=== PATIENT | female | born 1970 | race Caucasian/White ===

== ENCOUNTER 2016-11-16 07:49 | Day surgery (SDC) | payer OTHER ==
[2016-11-15 13:21] VITALS: BMI 21.9
[2016-11-16 08:44] VITALS: TEMP 98
[2016-11-16 08:55] LABS: BASOPHIL 1.2 % (0-2.0); EOSINOPHIL 3.7 % (0-4.5); MCH 28.6 pg (25.7-33.7); MCHC 33.6 g/dl (32.0-36.0); MEAN CELL VOLUME 85.2 fl (80-96); MEAN PLT VOLUME 8.3 fl (7.5-11.1); NEUTROPHILS 58.3 % (42.8-82.8); PLATELET COUNT 250 K/MM3 (134-434); WHITE BLOOD COUNT 7.4 K/mm3 (4.0-10.0)
[2016-11-16 09:23] LABS: INR 1.1 (0.82-1.09); PROTHROMBIN TIME (PATIENT) 12.1 SEC (9.98-11.88)
[2016-11-16] MEDS ORDERED: PORTA CATH FLUSH 10 ML IVPUSH PRN (09:55)
[2016-11-16] MEDS ORDERED: CEFAZOLIN (PRE-DOCKED) 100 ML IVPB ONE (11:26)
[2016-11-16 15:16] VITALS: BP 112/50; PULSE 80
== END 2016-11-16 14:10 | disposition home or self-care (01) ==
LOC: JRADIR 07:49
PROVIDERS: ATTEND Internal Medicine Hematology
PROC: 02HV33Z Insertion of Infusion Device into Superior Vena Cava, Percutaneous Approach (ICD-10-PCS; principal; 2016-11-16)
PROC: B548ZZA Ultrasonography of Superior Vena Cava, Guidance (ICD-10-PCS; 2016-11-16)
DX: C50.811 Malignant neoplasm of overlapping sites of right female breast (principal)
CPT/HCPCS: 36561; 76937; C1788; 36415; 77001-TC; 84703; 85025; 85610

== ENCOUNTER 2017-04-27 07:46 | Day surgery (SDC) | payer OTHER ==
[2017-04-26 15:31] VITALS: BMI 21.1
[2017-04-27] MEDS ORDERED: PROPOFOL 20 ML ONE (16:27)
[2017-04-27] MEDS ORDERED: MIDAZOLAM HCL 2 MG/2 ML SINGLE DOSE VIAL ONE (16:27)
[2017-04-27] MEDS ORDERED: LIDOCAINE HCL/PF 2% SDV 5ML VIAL ONE (16:28)
[2017-04-27] MEDS ORDERED: SODIUM CHLORIDE 0.9% P/F 10 ML VIAL IJ ONE (16:28)
[2017-04-27] MEDS ORDERED: ceFAZolin SODIUM 1 GM VIAL IVPB ONE (16:39)
[2017-04-27] MEDS ORDERED: ISOSULFAN BLUE 10 MG/ML VIAL SQ ONE (16:41)
[2017-04-27] MEDS ORDERED: DEXAMETHASONE SOD PHOSPHATE 4 MG/1 ML VIAL ONE (16:51)
[2017-04-27] MEDS ORDERED: BUPIVACAINE HCL/PF 0.5% (5MG/ML) 10 ML VIAL IJ ONE (17:00)
[2017-04-27] MEDS ORDERED: KETOROLAC TROMETHAMINE 30 MG/1 ML VIAL ONE (17:37)
[2017-04-27] MEDS ORDERED: KETOROLAC TROMETHAMINE 30 MG/1 ML VIAL IVPUSH PRN (18:29)
[2017-04-27] MEDS ORDERED: ONDANSETRON 4 MG/2 ML VIAL IVPUSH PRN ×2 (18:29→19:03)
[2017-04-27] MEDS ORDERED: DEXTROSE 5%-0.45% SALINE 1,000 ML IV SCH (18:30)
[2017-04-27] MEDS ORDERED: PROMETHAZINE HCL 25 MG/1 ML VIAL IVPB PRN (19:03)
[2017-04-27 19:13] VITALS: TEMP 98.2
[2017-04-27] MEDS ORDERED: LACTATED RINGERS SOLUTION 1,000 ML IV SCH (19:15)
[2017-04-27 20:14] VITALS: PULSE 72
[2017-04-27 20:15] VITALS: BP 117/62
--- NOTE | 2017-04-28 07:21 | OP ---
DATE OF OPERATION: 04/27/2017 PREOPERATIVE DIAGNOSIS: Right breast cancer, overlapping regions, status post neoadjuvant chemotherapy. POSTOPERATIVE DIAGNOSIS: Right breast cancer, overlapping regions, status post neoadjuvant chemotherapy. Await permanent section. PROCEDURE: A right breast partial mastectomy with mammographic needle localization with right axillary sentinel lymph node biopsy and tissue transfer 3 x 4-cm closure. ANESTHESIA: General laryngeal mask airway anesthesia. PRIMARY SURGEON: Rudy Bello MD DOUBLE END TENONER OPERATOR: ARUN Correa COMPLICATIONS: There were no complications. INDICATION FOR PROCEDURE: Briefly, the patient is a 46-year-old, G5, P2, premenopausal female with -[place] descent. She has no history of breast or ovarian cancer. She was found to have a spiculated density in the 12 o'clock region of the right breast on screening mammography. 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 MRI showed a localized cancer measuring about 2.1 cm with a separate density in the left breast which was biopsied showing a fibroadenoma. The patient was felt to be a good candidate for neoadjuvant chemotherapy and underwent TCHP chemotherapy, with followup MRI showing complete resolution of the cancer in the right breast. The patient is advised undergoing a right patient states that partial mastectomy and sentinel lymph node biopsy. DESCRIPTION OF PROCEDURE: She was brought in for the procedure on April 27, 2017. She first underwent a needle localization and lymphoscintigraphy down in radiology and was brought up to the holding area. In the holding area, site verification was made and informed consent was obtained. She was brought into the operating room and laid on the OR table in the supine position. Venodynes were placed on the lower extremities prior to induction, and she received a gram of Ancef prior to incision. She underwent general laryngeal mask airway anesthesia. Lymphazurin blue, 3 mL, was injected intradermally and peritumorally around the needle localization site. Massage was instituted. At this point the right breast was sterilely prepped and draped in the usual fashion. The surgery was started with the sentinel lymph node biopsy. An incision was made just below the hair-bearing area of the right axilla and dissection was undertaken, and 3 blue hot nodes were easily found in the level I, II regions of the right axilla. The first sentinel lymph node had a 10-second gamma count of 15,708. The second sentinel lymph node had a 10-second gamma count of 1363. The third sentinel lymph node had a 10-second gamma count of 3130. Background count after removal of these 3 nodes was 752. Hemostasis was achieved and the axillary wound was closed using interrupted 2-0 plain suture. The skin was closed using interrupted 3-0 deep dermal Vicryl suture and a running 4-0 subcuticular Biosyn suture. At this point the wide excision was undertaken around the needle localization site in the right breast. A periareolar curvilinear incision was made and dissection was undertaken around the needle localization. The breast tissue was completely removed from around the needle localization with a Y in the middle of the specimen. The specimen was oriented with a long lateral, short superior suture, and the specimen radiograph showed removal of the clip in question. At this point, separate margins were taken on the superior, inferior, medial, lateral, deep, and anterior margins, with sutures marking the biopsy cavity site and each specimen sent separately to pathology in formalin. We did do frozen sections on the 3 sentinel lymph nodes, which came back negative, so no other nodes were removed. At this point a tissue transfer closure was accomplished by bringing in about a 3 x 4-cm area of breast tissue into the defect in the upper aspect of the right breast. The breast tissue was reapproximated using 2-0 plain suture. The skin was closed using interrupted 3-0 deep dermal Vicryl suture and a running 4-0 subcuticular Biosyn suture. Mastisol and Steri-Strips were applied over the wound. The patient was placed in a surgical bra postoperatively, and laryngeal mask airway tube was removed at the end of the case. The patient will be recovered postoperatively and will be discharged home the same day once discharge criteria are met. She is to follow up in the office in 1 week for wound, pathology check. All sponge and needle counts were correct at the end of the case. Estimated blood loss was minimal. RUDY BELLO M.D. [id number]
--- NOTE | 2017-05-02 12:19 | PATH ---
Surgical Pathology Report Patient Name: GABRIEL ROBIN [facility]. Rec. #: [id number] /Age/Gender: 1970 (Age: 46) / F Account: [id number] Location: AMBULATORY SURG Taken: 04/27/2017 Received: 04/28/2017 Reported: 05/02/2017 Physicians: Los Bello M.D. Specimen(s) Received A: RIGHT SENTINEL LYMPH NODE 1 B: RIGHT SENTINEL LYMPH NODE 2 C: RIGHT SENTINEL LYMPH NODE 3 D: BREAST RIGHT LUMPECTOMY E: BREAST MASS SUPERIOR MARGIN F: BREAST MASS MEDIAL MARGIN G: BREAST MASS INFERIOR MARGIN H: BREAST MASS LATERAL MARGIN I: BREAST MASS DEEP MARGIN J: BREAST MASS ANTERIOR MARGIN Clinical History Right breast cancer status post neoadjuvant Intraoperative Consult Diagnosis A. Dewy Rose lymph node #1, frozen section: One negative lymph node (0/1). B. Dewy Rose lymph node #2, frozen section: One negative lymph node (0/1). C. Dewy Rose lymph node #3, frozen section: One negative lymph node (0/1). Glen Griffith M.D., 04/27/17 Final Diagnosis A. LYMPH NODE, RIGHT AXILLARY SENTINEL NODE #1, EXCISION: ONE BENIGN LYMPH NODE (0/1) BY STANDARD HEMATOXYLIN AND EOSIN STAIN (MULTIPLE LEVELS EXAMINED) AND AE1/3 IMMUNOSTAIN. B. LYMPH NODE, RIGHT AXILLARY SENTINEL NODE #2, EXCISION: ONE BENIGN LYMPH NODE (0/1) BY STANDARD HEMATOXYLIN AND EOSIN STAIN (MULTIPLE LEVELS EXAMINED) AND AE1/3 IMMUNOSTAIN. C. LYMPH NODE, RIGHT AXILLARY SENTINEL NODE #3, EXCISION: ONE BENIGN LYMPH NODE (0/1) BY STANDARD HEMATOXYLIN AND EOSIN STAIN (MULTIPLE LEVELS EXAMINED) AND AE1/3 IMMUNOSTAIN. D. RIGHT BREAST, WIDE EXCISION WITH WIRE LOCALIZATION: BENIGN BREAST TISSUE WITH FIBROADENOMATOUS CHANGES, AND FIBROCYSTIC CHANGES INCLUDING STROMAL FIBROSIS AND DUCTAL DILATATION. NO RESIDUAL INVASIVE DUCTAL CARCINOMA OR DUCTAL CARCINOMA IN SITU IDENTIFIED. AREA OF APPARENT TUMOR BED PRESENT, MEASURING 1.0 CM IN GREATEST DIMENSION. E. RIGHT BREAST, SUPERIOR MARGIN, EXCISION: BENIGN BREAST TISSUE WITH FIBROCYSTIC CHANGES INCLUDING STROMAL FIBROSIS, DUCTAL DILATATION, AND ASSOCIATED CALCIFICATION. FIBROADENOMATOUS CHANGES ARE PRESENT. F. RIGHT BREAST, MEDIAL MARGIN, EXCISION: BENIGN BREAST TISSUE. G. RIGHT BREAST, INFERIOR MARGIN, EXCISION: SMALL (2 MM) FIBROADENOMA, AND BENIGN BREAST TISSUE. H. RIGHT BREAST, LATERAL MARGIN, EXCISION: BENIGN BREAST TISSUE. I. RIGHT BREAST, DEEP MARGIN, EXCISION: BENIGN FIBROFATTY TISSUE. J. RIGHT BREAST, ANTERIOR MARGIN, EXCISION: BENIGN BREAST TISSUE. Comment: Immunohistochemical stains performed at [place], [place] ([id number]) and interpreted at [facility] show the following results: Immunostain for AE1/3 on Specimens A, B, and C are negative. Also see prior Slide Review [id number]. Comments Breast Invasive Carcinoma: Surgical Pathology Cancer Case Summary Based on AJCC/UICC TNM, 7th edition Procedure _X__ Excision with image-guided localization Lymph Node Sampling (select all that apply) (required only if lymph nodes are present in the specimen) _X__ Dewy Rose lymph node(s) Specimen Laterality _X__ Right Tumor Size: Size of Largest Invasive Carcinoma _X__ No residual invasive carcinoma Tumor Focality _X__ No residual invasive carcinoma Macroscopic and Microscopic Extent of Tumor Skin _X__ Invasive carcinoma does not invade into the dermis or epidermis Nipple _X__ Not applicable (excisions less than total mastectomy) Ductal Carcinoma In Situ (DCIS) _X__ No DCIS is present Histologic Type of Invasive Carcinoma : _X__ No residual invasive carcinoma Histologic Grade: ([place] Histologic Score) Tubular Differentiation _X__ No residual invasive carcinoma Nuclear Pleomorphism _X__ No residual invasive carcinoma Mitotic Rate _X__ No residual invasive carcinoma Overall Grade _X__ No residual invasive carcinoma after presurgical (neoadjuvant) therapy Lymph-Vascular Invasion _X__ Not identified Lymph Nodes Total number of lymph nodes examined (sentinel and nonsentinel): 3 Number of sentinel lymph nodes examined: 3 Number of lymph nodes with macrometastases ( > 2 mm): 0 Number of lymph nodes with micrometastases (>0.2 mm to 2 mm and/or >200cells):0 Number of lymph nodes with isolated tumor cells (=0.2 mm and =200 cells): 0 Extranodal Extension _X__ Not applicable Pathologic Staging (pTNM) Primary Tumor (Invasive Carcinoma): ypT0 Regional Lymph Nodes (pN): ypN0(sn) Biomarker Studies See prior Slide Review [id number] for results of biomarker studies [facility] [place], [place] Electronically Signed Quentin Valle M.D. Gross Description A. Received fresh labeled "sentinel lymph node #1 right axilla," is a 1.3 x 1.0 x 0.4 cm lymph node. The specimen is bisected and entirely submitted for frozen section. The frozen section residue is entirely submitted in one cassette. B. Received fresh labeled "sentinel lymph node #2 right axilla," is a 0.6 x 0.3 x 0.3 cm lymph node. The specimen is submitted in toto for frozen section. The frozen section residue is entirely submitted in one cassette. C. Received fresh labeled "sentinel lymph node #3 right axilla," is a 0.6 x 0.5 x 0.3 cm lymph node. The specimen is submitted in toto for frozen section. The frozen section residue is entirely submitted in one cassette. D. Received in formalin, labeled "right breast lumpectomy," is a 4.5 x 3.0 x 2.2 cm. cole-yellow, irregular, portion of fibroadipose tissue with a needle localization wire present. There is a short suture marking the superior aspect and a long suture marking the lateral aspect, per the surgeon. There is no skin or nipple present. The specimen is inked as follows: superior and lateral blue; inferior green; medial yellow; anterior red; deep black. The specimen is serially sectioned from superior to inferior. Sectioning reveals abundant dense, white, firm fibrous tissue. No definitive residual mass is identified. The specimen is entirely and sequentially submitted from superior to inferior in 10 cassettes with the superior margin in cassette 1 and the inferior margin in cassette 10 (one whole bisected section each in cassettes 5/6, 7/8). Total formalin fixation time: Between 24-32 hours E. Received in formalin labeled "superior margin," is a 2.6 x 2.0 x 0.6 cm irregular portion of fibroadipose tissue with a suture marking the biopsy cavity side, per the surgeon. The new margin is inked blue and the specimen is serially sectioned. The specimen is entirely submitted in 3 cassettes. F. Received in formalin labeled "medial margin," is a 2.7 x 1.8 x 0.7 cm irregular portion of fibroadipose tissue with a suture marking the biopsy cavity side, per the surgeon. The new margin is inked blue and the specimen is serially sectioned. The specimen is entirely submitted in 3 cassettes. G. Received in formalin labeled "inferior margin," is a 2.3 x 1.8 x 0.7 cm irregular portion of fibroadipose tissue with a suture marking the biopsy cavity side, per the surgeon. The new margin is inked blue and the specimen is serially sectioned. The specimen is entirely submitted in 3 cassettes. H. Received in formalin labeled "lateral margin," is a 2.8 x 2.0 x 0.7 cm irregular portion of fibroadipose tissue with a suture marking the biopsy cavity side, per the surgeon. The new margin is inked blue and the specimen is serially sectioned. The specimen is entirely submitted in 3 cassettes. I. Received in formalin labeled "deep margin," is a 1.5 x 1.3 x 0.3 cm irregular portion of fibroadipose tissue with a suture marking the biopsy cavity side, per the surgeon. The new margin is inked blue and the specimen is serially sectioned. The specimen is entirely submitted in 2 cassettes. J. Received in formalin labeled "anterior margin," is a 1.7 x 1.2 x 0.7 cm irregular portion of fibroadipose tissue with a suture marking the biopsy cavity side, per the surgeon. The new margin is inked blue and the specimen is serially sectioned. The specimen is entirely submitted in 2 cassettes. 04/28/2017 saudi04/28/2017
== END 2017-04-27 22:05 | disposition home or self-care (01) ==
LOC: JASUSAT 07:46 → J8W 20:31 → JASUSAT 22:05
PROVIDERS: ATTEND Surgery Surgical Oncology
PROC: 0HBT0ZZ Excision of Right Breast, Open Approach (ICD-10-PCS; principal; 2017-04-27 13:00)
PROC: 0HBT0ZX Excision of Right Breast, Open Approach, Diagnostic (ICD-10-PCS; 2017-04-27 13:00)
DX: C50.811 Malignant neoplasm of overlapping sites of right female breast (principal)
CPT/HCPCS: 19281; 78195-TC; 84703; 94760; A9541

== ENCOUNTER 2018-02-20 12:04 | Day surgery (SDC) | payer OTHER ==
--- NOTE | 2018-02-12 11:25 | HP ---
Admitting History and Physical - Primary Care Physician PCP: Los Bello - Admission Chief Complaint: Right breast cancer History of Present Illness: 47 year old premenapausal female S//P right breast wide excision sentenel node biopsy for invasive cancer HER2 + . She received chemotherapy and 07/2017 finished Herceptin. She also received RT. Mammogram and Us 08/2017 post op changes and right breast mammogram and US follow up for 03/2018. She is here for port removal. History Source: Patient Limitations to Obtaining History: No Limitations - Past Medical History Gastrointestinal: Yes: Diverticulitis ...LMP: 08/15/16 - Past Surgical History Past Surgical History: Yes: Cholecystectomy (2006) Additional Past Surgical History: ovarian cystectomy 2015 - Smoking History Smoking history: Never smoked Have you smoked in the past 12 months: No - Alcohol/Substance Use Hx Alcohol Use: No Home Medications - Allergies Allergies/Adverse Reactions: Allergies Allergy/AdvReac Type Severity Reaction Status Date / Time shellfish derived Allergy Severe Hives Verified 04/26/17 15:32 No Known Drug Allergies Allergy Verified 04/26/17 15:32 - Home Medications Home Medications: Ambulatory Orders Oxycodone HCl/Acetaminophen [Percocet 5-325 mg Tablet] 1 - 2 tab PO Q6H PRN #30 tab MDD 6 04/27/17 Family Disease History - Family Disease History Family History: Denies Physical Examination Constitutional: Yes: No Distress Breast(s): Yes: Other (Well healed right periareolar incision no recurrence or adenopathy right breast , left breast negative) Problem List - Problems (1) Breast cancer, right breast Code(s): C50.911 - MALIGNANT NEOPLASM OF UNSP SITE OF RIGHT FEMALE BREAST Qualifiers: Breast location: overlapping sites of breast Patient sex: female Assessment/Plan Life port removal
[2018-02-12 19:33] VITALS: BMI 22.8
[2018-02-20] MEDS ORDERED: LIDOCAINE HCL 1%, 10 MG/ML (20ML VIAL) ONE (13:06)
[2018-02-20] MEDS ORDERED: MIDAZOLAM HCL 2 MG/2 ML SINGLE DOSE VIAL ONE (13:49)
[2018-02-20] MEDS ORDERED: DEXAMETHASONE SOD PHOSPHATE 4 MG/1 ML VIAL ONE (13:55)
[2018-02-20] MEDS ORDERED: KETOROLAC TROMETHAMINE 30 MG/1 ML VIAL ONE (13:55)
[2018-02-20] MEDS ORDERED: ONDANSETRON 4 MG/2 ML VIAL ONE (13:55)
[2018-02-20] MEDS ORDERED: LIDOCAINE HCL 1%, 10 MG/ML (50 mL VIAL) INF ONE (14:07)
[2018-02-20] MEDS ORDERED: BUPIVACAINE HCL/PF 2.5 MG/ML - 30 ML VIAL IJ ONE (14:08)
[2018-02-20] MEDS ORDERED: BUPIVACAINE HCL/PF 0.25% (2.5MG/ML) 10 ML VIAL IJ ONE (14:20)
[2018-02-20] MEDS ORDERED: ONDANSETRON 4 MG/2 ML VIAL IVPUSH PRN ×2 (14:31→14:34)
[2018-02-20] MEDS ORDERED: KETOROLAC TROMETHAMINE 30 MG/1 ML VIAL IVPUSH PRN (14:31)
[2018-02-20] MEDS ORDERED: PROMETHAZINE HCL 25 MG/1 ML VIAL IVPUSH PRN (14:34)
[2018-02-20] MEDS ORDERED: oxyCODONE HCL 5 MG TABLET PO PRN ×2 (14:34)
[2018-02-20] MEDS ORDERED: DEXTROSE 5%-0.45% SALINE 1,000 ML IV SCH (14:45)
[2018-02-20 15:11] VITALS: TEMP 97.8
--- NOTE | 2018-02-20 15:53 | OP ---
DATE OF OPERATION: 02/20/2018 PREOPERATIVE DIAGNOSIS: Right breast cancer, overlapping regions status post chemotherapy, radiation therapy. POSTOPERATIVE DIAGNOSIS: Right breast cancer, overlapping regions status post chemotherapy, radiation therapy. PROCEDURE: Removal of a left internal jugular single-lumen Port-A-Cath. ANESTHESIA: Local with IV sedation. SURGEON: Rudy Bello MD FOOD PACKER: ARUN Correa COMPLICATIONS: None. Briefly, the patient is a 47-year-old, G3, P2, premenopausal female with /[place] descent with no family history of breast or ovarian cancer. She was found to have a right breast 12 o'clock density back in September 2016, and core biopsy showed a poorly-differentiated, invasive duct cancer which was ER/NC negative, HER2 positive. She underwent TCHP neoadjuvant chemotherapy and had a complete radiologic response on MRI after chemotherapy. She underwent a right breast partial mastectomy and sentinel lymph node biopsy on April 27, 2016, showing a complete pathological response with no further cancer and 3 negative sentinel nodes. She underwent radiation therapy to the right breast and finished Herceptin for a year of therapy. She now presents for removal of a left-sided internal jugular, single-lumen Port-A-Cath. She was brought into the [facility] on February 20, 2018. She was brought to the holding area, and in the holding area, site verification was made, and informed consent was obtained. She was brought into the operating room and laid on the OR table in a supine position. Venodynes were placed on lower extremities. She did not receive any antibiotics given the small nature of the excision. The upper left chest wall was sterilely prepped and draped in usual fashion. She was given IV sedation, and 1% lidocaine was given directly over the upper left chest wall over the Port-A-Cath site. The previous incision was excised with small elliptical incision, removing the previous scar. Dissection was undertaken, and the single-lumen Port-A-Cath chamber with the catheter was completely removed intact, sent to Pathology as specimen. The capsule scar tissue was completely excised. The subcutaneous tissue was then reapproximated using 2-0 plain suture. The skin was closed using interrupted 3-0 deep dermal Vicryl suture and a running 4-0 subcuticular Biosyn suture. Dermabond was placed over the wound. The patient tolerated the procedure well, without difficulty. Estimated blood loss was minimal. All sponge and needle counts are correct at the end of the case. The patient will be recovered and discharged home the same day once discharge criteria are met. She is to follow up in the office in about a week for a wound evaluation. RUDY BELLO M.D. [id number]
[2018-02-20 16:23] VITALS: BP 118/63; PULSE 66
--- NOTE | 2018-02-26 14:51 | PATH ---
Surgical Pathology Report Patient Name: GABRIEL ROBIN Med. Rec. #: [id number] /Age/Gender: 1970 (Age: 47) / F Account: [id number] Location: [facility] AMBULATORY Taken: 02/20/2018 Received: 02/20/2018 Reported: 02/26/2018 Physicians: Los Bello M.D. Specimen(s) Received LEFT CHEST WALL PORTACATH Clinical History Right breast cancer Final Diagnosis PORT-A-CATH, CHEST WALL, LEFT, REMOVAL: CONSISTENT WITH PORT-A-CATH. MACROSCOPIC DIAGNOSIS. Electronically Signed Sydney Tamayo M.D. Gross Description Received fresh labeled "left chest wall Port-A-Cath," is a 2.5 x 2.4 x 1.4 cm white, triangular device, consistent with a tracy cath. The port displays an 18 cm in length portion of white tubing extending from one aspect. No soft tissue is present. No sections are submitted, gross only. 02/21/2018 saudi02/21/2018
== END 2018-02-20 15:45 | disposition home or self-care (01) ==
LOC: FASU 12:04
PROVIDERS: ATTEND Surgery Surgical Oncology
PROC: 05PY03Z Removal of Infusion Device from Upper Vein, Open Approach (ICD-10-PCS; 2018-02-20)
PROC: 0JPT3WZ Removal of Totally Implantable Vascular Access Device from Trunk Subcutaneous Tissue and Fascia, Percutaneous Approach (ICD-10-PCS; principal; 2018-02-20 13:30)
DX: Z45.2 Encounter for adjustment and management of vascular access device (principal); C50.811 Malignant neoplasm of overlapping sites of right female breast; Z92.21 Personal history of antineoplastic chemotherapy; Z92.3 Personal history of irradiation
CPT/HCPCS: 88300-TC; 94760